=== PATIENT | female | born 1990 | race Caucasian/White ===

== ENCOUNTER 2018-12-14 15:15 | Emergency (ER) | payer OTHER, SELFPAY ==
[~2018-12-14] VITALS: Ht 172.7 cm; Wt 145.4 kg
[2018-12-14 15:16] VITALS: BP 149/92
[2018-12-14] MEDS ORDERED: ENSK1TAB3 (15:22)
[2018-12-14] MEDS ORDERED: HYDR-3363 (15:22)
[2018-12-14] MEDS ORDERED: BUSP-29 (15:22)
--- NOTE | 2018-12-14 15:55 | REP ---
Right ankle series: Four views. History: Injury in a fall. Findings: Four views right ankle demonstrate a chip fracture of the lateral malleolar tip with associated soft-tissue swelling. The ankle mortise is intact. No tibial fracture is appreciated. Impression: Chip fracture of the lateral malleolar tip with associated soft-tissue swelling. Electronically Signed by Len Chavez MD 12/14/2018 03:46 P
[2018-12-14] MEDS ORDERED: IBUPROFEN 800 MG TAB PO ONE (17:30)
== END 2018-12-14 17:49 | disposition home or self-care (01) ==
LOC: M ED 15:15
DX: S82.61XA Displaced fracture of lateral malleolus of right fibula, initial encounter for closed fracture (principal); X58.XXXA Exposure to other specified factors, initial encounter; Y92.018 Other place in single-family (private) house as the place of occurrence of the external cause; Z79.899 Other long term (current) drug therapy; Z79.3 Long term (current) use of hormonal contraceptives; Z88.0 Allergy status to penicillin; Z88.1 Allergy status to other antibiotic agents; Z88.2 Allergy status to sulfonamides; Z91.018 Allergy to other foods

== ENCOUNTER → 2019-02-18 | Outpatient (CLI) | payer OTHER ==
[~2019-02-18] MED LIST: BUSP-29; ENSK1TAB3; HYDR-3363
--- NOTE | 2019-02-18 15:25 | REP ---
MRI RIGHT ANKLE: TECHNIQUE: Sagittal proton density, STIR, axial proton density fat sat, T1, coronal proton density, STIR. The Achilles, anterior tibial, posterior tibial, flexor halluces longus, flexor digitorum longus and peroneal tendons all appear intact with no evidence of tear. Anterior and posterior talofibular and calcaneal fibular ligaments are intact. There is increased signal involving the superficial posterior tibiotalar ligament suggesting a sprain. Plantar tendon is intact. No abnormal signal is seen in the plantar fascia. Normal amount of scattered joint fluid is seen. No ganglion cyst is seen. Bone marrow signal is homogeneous and unremarkable with no bone marrow edema or occult fracture. No osteochondral defect is seen at the tibiotalar joint. IMPRESSION: Increased signal on T2-weighted images involving the superficial posterior tibiotalar ligament suggesting a sprain. No tendon tear or occult fracture. Electronically Signed by Mynor Gil MD 02/18/2019 04:56 P
== END ==
LOC: M RAD 13:18
PROVIDERS: ATTEND Orthopaedic Surgery
DX: S93.491A Sprain of other ligament of right ankle, initial encounter (principal); X58.XXXA Exposure to other specified factors, initial encounter; Y92.89 Other specified places as the place of occurrence of the external cause

== ENCOUNTER 2019-07-21 17:19 | Emergency (ER) | payer OTHER ==
[~2019-07-21] VITALS: Ht 172.7 cm; Wt 149.3 kg
[~2019-07-21 17:19] MED LIST changes: -BUSP-29; +BUSP-29 PO; -HYDR-3363; +HYDR-3363 PO
[2019-07-21 17:24] VITALS: BP 150/95
[2019-07-21] MEDS ORDERED: BUSP30TA PO (17:26)
[2019-07-21] MEDS ORDERED: DULO1CAP5 PO (17:26)
[2019-07-21] MEDS ORDERED: ISIB1TAB PO (17:26)
[2019-07-21] MEDS ORDERED: HYDR1TAB33 PO (17:26)
[2019-07-21] MEDS ORDERED: PYRI1TAB5 PO (17:50)
[2019-07-21] MEDS ORDERED: MACR100C43 PO (17:50)
[2019-07-21] MEDS ORDERED: NITROFURANTOIN (MACROBID) 100 MG CAP PO ONE (18:00)
[2019-07-21] MEDS ORDERED: PHENAZOPYRIDINE 100 MG TAB PO ONE (18:00)
== END 2019-07-21 18:09 | disposition home or self-care (01) ==
LOC: M ED 17:19
DX: N39.0 Urinary tract infection, site not specified (principal); E28.2 Polycystic ovarian syndrome; Z98.890 Other specified postprocedural states; Z79.899 Other long term (current) drug therapy; Z88.1 Allergy status to other antibiotic agents; Z88.2 Allergy status to sulfonamides; Z88.8 Allergy status to other drugs, medicaments and biological substances; Z91.013 Allergy to seafood

== ENCOUNTER → 2019-11-01 | Outpatient (REF) | payer OTHER ==
[~2019-11-01] MED LIST changes: +BUSP30TA PO; +DULO1CAP5 PO; +HYDR1TAB33 PO; +ISIB1TAB PO; +MACR100C43 PO; +PYRI1TAB5 PO
== END ==
LOC: M SFHCLUC 15:02
PROVIDERS: ATTEND Nurse Practitioner Family
DX: R30.0 Dysuria (principal)

== ENCOUNTER → 2022-08-30 | Outpatient (CLI) | payer OTHER ==
[~2022-08-30] MED LIST changes: -BUSP-29 PO; +BUSP10TA79 PO
[2022-08-30 06:37] LABS: BASO % 0.2 % (0.0-1.0); EOS # 0.3 10^3/uL (0.0-0.5); EOS % 2.5 % (0.0-3.0); HEMATOCRIT 44.9 % (36.0-47.0); HEMOGLOBIN 14.8 g/dl (12.0-15.5); LYMPH # 2.8 10^3/uL (1.5-5.0); LYMPH % 24.6 % (24.0-44.0); MEAN CORPUSCULAR HEMOGLOBIN 28.1 pg (27.0-33.0); MEAN CORPUSCULAR VOLUME 85.4 fl (80.0-96.0); MONO # 0.8 10^3/uL (0.0-0.8); MONO % 7.1 % (2.0-8.0); NEUTROPHILS # 7.4 10^3/uL (1.5-8.5); NEUTROPHILS % 65.3 % (36.0-66.0); PLATELET COUNT, AUTOMATED 254 10^3/uL (150-450); RED BLOOD COUNT 5.26 10^6/uL (4.00-5.40); WHITE BLOOD COUNT 11.4 10^3/uL (4.0-10.0)
[2022-08-30 07:18] LABS: ALBUMIN 3.7 G/DL (3.2-5.2); ALKALINE PHOSPHATASE 103 U/L (46-116); ALT/SGPT 36 U/L (7.0-40); AST/SGOT 22 U/L (<34); BILIRUBIN,TOTAL 0.8 MG/DL (0.3-1.2); BLOOD UREA NITROGEN 8 MG/DL (9-23); CALCIUM LEVEL 8.7 MG/DL (8.5-10.1); CARBON DIOXIDE LEVEL 25 MMOL/L (20-31); CHLORIDE LEVEL 106 MMOL/L (98-107); CHOLESTEROL LEVEL 165 MG/DL (<200); CHOLESTEROL RISK RATIO 3.69 (<5); CREATININE FOR GFR 0.88 MG/DL (0.55-1.30); GLOMERULAR FILTRATION RATE > 60.0 (>60); GLUCOSE, FASTING 83 MG/DL (60-100); HDL CHOLESTEROL 44.6 MG/DL (>40); LDL CHOLESTEROL 106.6 MG/DL (<100); NON-HDL-C 120.4 MG/DL; POTASSIUM SERUM 3.8 MMOL/L (3.5-5.1); SODIUM LEVEL 137 MMOL/L (136-145); TOTAL PROTEIN 6.7 G/DL (5.7-8.2); TRIGLYCERIDES LEVEL 69 MG/DL (<150)
[2022-08-30 07:19] LABS: THYROID STIMULATING HORMONE 1.476 uIU/ML (0.55-4.78)
[2022-08-30 07:20] LABS: FREE T4 1.09 NG/DL (0.89-1.76)
== END ==
LOC: M LAB 06:10
PROVIDERS: ATTEND Student in an Organized Health Care Education/Training Program
DX: E66.01 Morbid (severe) obesity due to excess calories (principal)

== ENCOUNTER → 2023-01-30 | Outpatient (REF) | payer OTHER | LOC: M SFHCLERA 12:24 | PROVIDERS: ATTEND Physician Assistant | DX: K62.5 Hemorrhage of anus and rectum (principal); R19.7 Diarrhea, unspecified ==

== ENCOUNTER → 2024-05-20 | Outpatient (CLI) | payer OTHER ==
[2024-05-20 09:23] LABS: BASO % 0.2 % (0.0-1.0); EOS # 0.2 10^3/uL (0.0-0.5); EOS % 2.4 % (0.0-3.0); HEMATOCRIT 44.8 % (36.0-47.0); HEMOGLOBIN 14.9 g/dl (12.0-15.5); LYMPH # 1.6 10^3/uL (1.5-5.0); LYMPH % 18.5 % (24.0-44.0); MEAN CORPUSCULAR HEMOGLOBIN 28.4 pg (27.0-33.0); MEAN CORPUSCULAR HGB CONC 33.3 g/dl (32.0-36.5); MEAN CORPUSCULAR VOLUME 85.3 fl (80.0-96.0); MONO # 0.6 10^3/uL (0.0-0.8); MONO % 6.9 % (2.0-8.0); NEUTROPHILS # 6.2 10^3/uL (1.5-8.5); NEUTROPHILS % 71.5 % (36.0-66.0); PLATELET COUNT, AUTOMATED 255 10^3/uL (150-450); RED BLOOD COUNT 5.25 10^6/uL (4.00-5.40); WHITE BLOOD COUNT 8.6 10^3/uL (4.0-10.0)
[2024-05-20 09:53] LABS: ALBUMIN 3.3 G/DL (3.2-5.2); ALKALINE PHOSPHATASE 106 U/L (35-104); ALT/SGPT 37 U/L (7.0-40); AST/SGOT 24 U/L (<34); BILIRUBIN,TOTAL 0.9 MG/DL (0.3-1.2); BLOOD UREA NITROGEN 8 MG/DL (9-23); CALCIUM LEVEL 8.8 MG/DL (8.5-10.1); CARBON DIOXIDE LEVEL 26 MMOL/L (20-31); CHLORIDE LEVEL 106 MMOL/L (98-107); CHOLESTEROL LEVEL 173 MG/DL (<200); CHOLESTEROL RISK RATIO 3.98 (<5); GLOMERULAR FILTRATION RATE > 60.0 (>60); GLUCOSE, FASTING 89 MG/DL (60-100); HDL CHOLESTEROL 43.4 MG/DL (>40); LDL CHOLESTEROL 111.6 MG/DL (<100); NON-HDL-C 129.6 MG/DL; SODIUM LEVEL 141 MMOL/L (136-145); TOTAL PROTEIN 6.9 G/DL (5.7-8.2); TRIGLYCERIDES LEVEL 90 MG/DL (<150)
[2024-05-20 09:54] LABS: TOTAL 25(OH) VITAMIN D 12.4 NG/ML (20.0-100.0)
[2024-05-20 09:55] LABS: THYROID STIMULATING HORMONE 2.221 uIU/ML (0.55-4.78)
== END ==
LOC: M LAB 08:07
DX: K21.9 Gastro-esophageal reflux disease without esophagitis (principal); E66.01 Morbid (severe) obesity due to excess calories

== ENCOUNTER → 2024-05-27 | Outpatient (CLI) | payer OTHER ==
[2024-05-27 11:09] LABS: C REACTIVE PROTEIN QUANTITATIV 1.61 MG/DL (<1.0)
[2024-05-27 11:10] LABS: RHEUMATOID FACTOR QUANT < 3.5 IU/ML (<14)
[2024-05-27 11:13] LABS: URIC ACID 4.8 MG/DL (3.1-7.8)
== END ==
LOC: M LAB 09:32
DX: I77.6 Arteritis, unspecified (principal)